=== PATIENT | female | born 1980 | race Hispanic/Latino ===

== ENCOUNTER 2025-01-29 12:06 | Emergency (ER) | payer OTHER ==
[2025-01-29] MEDS ORDERED: Ketorolac Tromethamine 30 MG (1 mL) VIAL ONE (12:39)
[2025-01-29] MEDS ORDERED: Cyclobenzaprine 10 MG TAB ONE (12:39)
[2025-01-29] MEDS ORDERED: HYDROcodone/Acetaminophen 5/325 mg Tablet ONE (14:44)
== END 2025-01-29 15:58 | disposition home or self-care (01) ==
LOC: CSHERS 12:06
DX: S39.012A Strain of muscle, fascia and tendon of lower back, initial encounter (principal); F17.290 Nicotine dependence, other tobacco product, uncomplicated; X50.0XXA Overexertion from strenuous movement or load, initial encounter; Y93.F2 Activity, caregiving, lifting; Y92.129 Unspecified place in nursing home as the place of occurrence of the external cause
CPT/HCPCS: 72131; 96372; J1885

== ENCOUNTER 2025-02-03 13:11 | Emergency (ER) | payer SELFPAY ==
[2025-02-03] MEDS ORDERED: HYDROmorphone 0.5 MG/0.5 ML SYRINGE ONE (14:12)
[2025-02-03 14:26] LABS: #Basophils 0.07 10x3/uL (0.0-0.2); #Eosinophils 0.34 10x3/uL (0.0-0.5); #Monocytes 0.66 10x3/uL (0.0-1.1); #Neutrophils 7.51 10x3/uL (1.5-8.4); %Basophils 0.6 % (0.0-2.0); %Eosinophils 2.9 % (0.0-6.0); %Lymphocytes 25.6 % (18.0-47.0); %Monocytes 5.7 % (0.0-10.0); %Neutrophils 64.9 % (40.0-75.0); Hematocrit 39.7 % (34.9-44.5); Hemoglobin 13.3 g/dL (12.0-15.5); Mean Corpuscular Hemoglobin 25.9 pg (27.0-33.0); Mean Corpuscular Volume 77.4 fL (81.6-98.3); Platelet Count 367 10x3/uL (150-450); Red Blood Cell (RBC) Count 5.13 10x6/uL (3.90-5.03); White Blood Cell (WBC) Count 11.58 10x3/uL (3.5-10.5)
[2025-02-03 14:42] LABS: ALT (SGPT) 39 U/L (Less than 34); AST (SGOT) 44 U/L (11-34); Albumin 3.6 g/dL (3.1-4.5); Alkaline Phosphatase 61 U/L (40-110); Anion Gap 15 mmol/L (10-20); BUN (Urea Nitrogen) 14 mg/dL (7.0-18.7); Bilirubin, Total 0.2 mg/dL (0.3-1.2); Calc. Creatinine Clearance 0 mL/min (70-130); Calcium 8.9 mg/dL (7.8-10.44); Carbon Dioxide 22 mmol/L (22-29); Chloride 104 mmol/L (98-107); Globulin 3.9 g/dL (2.4-3.5); Glucose 100 mg/dL (70-105); Potassium 4.0 mmol/L (3.5-5.1); Sodium 137 mmol/L (136-145)
== END 2025-02-03 18:33 | disposition home or self-care (01) ==
LOC: CSHERS 13:11
DX: M54.9 Dorsalgia, unspecified (principal); F17.290 Nicotine dependence, other tobacco product, uncomplicated
CPT/HCPCS: 72148; 80053; 85025; 96374; 96375; J1171; J2270